=== PATIENT | male | born 1970 | race American Indian/Alaskan Native ===

== ENCOUNTER 2017-05-05 23:46 | Emergency (ER) | payer SELFPAY ==
[2017-05-05 23:50] VITALS: BP 127/72; PULSE 64; RESP 16; TEMP 98; O2SAT 100
--- NOTE | 2017-05-05 23:52 | ED PDOC ---
HPI: Psych/Substance Abuse Time Seen by Provider: 05/05/17 23:51 Chief Complaint (Nursing): Substance Abuse Chief Complaint (Provider): substance abuse History Per: Patient Additional Complaint(s): 46 year old male presents to ED for evaluation of substance abuse. Patient admits to snorting heroin tonight and he states he feels more tired than usual. Past Medical History Reviewed: Historical Data, Nursing Documentation, Vital Signs Vital Signs: Last Vital Signs Temp 98.0 F 05/05/17 23:48 Pulse 64 05/05/17 23:48 Resp 16 05/05/17 23:48 BP 127/72 05/05/17 23:48 Pulse Ox 100 05/05/17 23:48 - Medical History PMH: No Chronic Diseases - Family History Family History: States: Unknown Family Hx - Living Arrangements Living Arrangements: Other (undomiciled) - Social History Drugs: Opiates (snorts heroin daily) - Allergies Allergies/Adverse Reactions: Allergies Allergy/AdvReac Type Severity Reaction Status Date / Time No Known Allergies Allergy Verified 05/05/17 23:47 Review of Systems ROS Statement: Except As Marked, All Systems Reviewed And Found Negative Psych: Positive for: Other (heroin abuse) Physical Exam - Reviewed Nursing Documentation Reviewed: Yes Vital Signs Reviewed: Yes - Physical Exam Appears: Positive for: Well, Non-toxic, No Acute Distress Skin: Negative for: Rash Eye Exam: Positive for: Normal appearance Cardiovascular/Chest: Positive for: Regular Rate, Rhythm Respiratory: Positive for: Normal Breath Sounds Extremity: Positive for: Normal ROM Neurologic/Psych: Positive for: Other (arousable) - ECG O2 Sat by Pulse Oximetry: 100 Pulse Ox Interpretation: Normal Medical Decision Making Medical Decision Makin46 year old male with heroin abuse Patient was observed in ED, his condition has remained stable throughout his stay. 5:30 am: patient is awake and alert, has steady gait. He is stable for discharge. Disposition - Clinical Impression Clinical Impression: Heroin abuse - Patient ED Disposition Is Patient to be Admitted: No - Disposition Referrals: [facility] [Outside] Disposition: Routine/Home Disposition Time: 04:54 Condition: STABLE Instructions: Narcotic Abuse (ED) Forms: [employer] (Turk[place])
== END 2017-05-06 05:48 | disposition home or self-care (01) ==
LOC: H.ER 23:46
DX: F11.10 Opioid abuse, uncomplicated (principal)